=== PATIENT | female | born 1990 | race Caucasian/White ===

== ENCOUNTER 2018-01-24 12:52 | Emergency (ER) | payer OTHER ==
[~2018-01-24] VITALS: Ht 167.6 cm; Wt 68.0 kg
[2018-01-24 13:16] VITALS: BP 105/68
[2018-01-24] MEDS ORDERED: IBUPROFEN 200 MG TABLET ONE (13:29)
[2018-01-24] MEDS ORDERED: IBUPROFEN 200 MG TABLET PO ONE (13:30)
== END 2018-01-24 14:53 | disposition home or self-care (01) ==
LOC: ED 14:45
DX: S80.02XA Contusion of left knee, initial encounter (principal); W01.10XA Fall on same level from slipping, tripping and stumbling with subsequent striking against unspecified object, initial encounter; Y93.89 Activity, other specified; Y99.0 Civilian activity done for income or pay; Y92.69 Other specified industrial and construction area as the place of occurrence of the external cause
CPT/HCPCS: 29505; 99284

== ENCOUNTER 2019-09-14 11:03 | Emergency (ER) | payer BC, OTHER ==
[~2019-09-14] VITALS: Ht 170.2 cm; Wt 67.2 kg
[2019-09-14 11:11] VITALS: BP 101/66
--- NOTE | 2019-09-14 11:19 | NUR ---
HX ALLERGIC REACTION TO RODENTS AT WORK, YESTERDAY MORNING DEVELOPED ANOTHER REACTION, RASH, HIVES, ITCHING, THROAT FEELS SWOLLEN. ABLE TO SPEAK FULL SENTANCES, SPO2 STABLE. YESTERDAY TREATED AT [facility]. ADMINISTERED BENADRYL HOWEVER NO IMPROVEMENT.
[2019-09-14] MEDS ORDERED: FAMOTIDINE 20 MG TABLET ONE (11:58)
[2019-09-14] MEDS ORDERED: DIPHENHYDRAMINE 50 MG CAPSULE ONE (11:58)
[2019-09-14] MEDS ORDERED: DEXAMETHASONE 4 MG TABLET ONE (11:58)
[2019-09-14] MEDS ORDERED: DIPHENHYDRAMINE 25 MG CAPSULE PO ONE (12:00)
[2019-09-14] MEDS ORDERED: FAMOTIDINE 20 MG TABLET PO ONE (12:00)
[2019-09-14] MEDS ORDERED: DEXAMETHASONE 4 MG TABLET PO ONE (12:00)
--- NOTE | 2019-09-14 12:39 | NUR ---
DISCHARGE INSTRUCTIONS REVIEWED
== END 2019-09-14 12:54 | disposition home or self-care (01) ==
LOC: ED 12:08
DX: L50.0 Allergic urticaria (principal)
CPT/HCPCS: 99284; Q0163